=== PATIENT | female | born 1975 | race Caucasian/White ===

== ENCOUNTER → 2018-05-26 13:42 | Outpatient (CLI) | payer OTHER, SELFPAY ==
[2018-05-26 15:20] LABS: Absolute Lymphocyte Count 2.29 X10^3/ul (0.83-4.51); Absolute Neutrophil Count 6.2 X10^3/uL (2.0-7.7); Basophil# 0.02 X10^3/uL; Basophil% 0.2 % (0-1); Eosinophils% 2.2 % (0-5); Hematocrit 38.8 % (37-47); Hemoglobin 12.3 g/dl (12.0-15.0); Lymphocyte # 2.29 X10^3/ul (4.0); Lymphocyte % 25.2 % (19-41); Mean Corp Hgb Conc 31.7 g/gl (32-36); Mean Corpuscular Hgb 26.7 pg (27.0-32.0); Mean Corpuscular Volume 84.3 fL (81-99); Mean Platelet Vol. 9.8 fl (6.2-12.0); Monocyte# 0.37 X10^3/uL; Monocyte% 4.1 % (0-10); Neutrophil # 6.18 X10^3/uL (2.7-7.7); Neutrophil % 68.2 % (47-70); Platelet Count 408 K/mm3 (150-450); RBC Distribution Width CV 13.7 % (11.6-14.6); RBC Distribution Width SD 42.2 fl (35.1-43.9); White Blood Count 9.1 K/mm3 (4.4-11.0)
[2018-05-26 15:31] LABS: POSITIVE COUNT NO; POSITIVE DIFFERENTIAL NO; POSITIVE MORPHOLOGY NO
[2018-05-26 17:33] LABS: ALB/GLOB Ratio 0.7 RATIO (0.9-2.4); AST(SGOT) 12 U/L (15-37); Alanine Aminotransfer ALT/SGPT 20 U/L (13-56); Albumin, Serum 3.3 g/dL (3.2-5.0); Alkaline Phosphatase 63 U/L (45-117); Anion Gap 11 (5-15); BUN 8 mg/dL (7-18); BUN/Creat Ratio 11.3 RATIO (10-20); Calcium,Total 8.5 mg/dL (8.5-10.1); Chloride 105 mmol/L (98-107); Cholesterol 180 mg/dL (200); Creatinine, Serum 0.71 mg/dL (0.55-1.02); EST Glomerular Filtration Rate 95 mL/min (>60); Est Glom Filt Rate - Afr Amer 115 mL/min (>60); Globulin 4.9 g/dL (2.2-4.2); Glucose 81 mg/dL (74-106); High Density Lipoprotein 44 mg/dL; Potassium 3.9 mmol/L (3.5-5.1); Protein, Total 8.2 g/dL (6.4-8.2); Sodium Level 139 mmol/L (136-145); Triglycerides 73 mg/dL; Very Low Density Lipoprotein 15 mg/dL (5-40)
[2018-05-26 17:46] LABS: Vitamin D,25 Hydroxy 28.2 ng/mL (29.95-100.01)
[2018-05-29 09:40] LABS: HPV Reflexed? NOT INDICATED
== END ==
PROVIDERS: Family Provider Family Medicine; PCP Family Medicine; Visit Provider Family Medicine
DX: Z12.4 Encounter for screening for malignant neoplasm of cervix (principal)
CPT/HCPCS: 36415; 80053; 80061; 82306; 85025; 88175; G0145

== ENCOUNTER → 2020-02-15 11:46 | Outpatient (CLI) | payer OTHER, SELFPAY ==
[2020-02-15 15:05] LABS: Absolute Lymphocyte Count 2.25 X10^3/uL (0.83-4.51); Absolute Neutrophil Count 4.4 X10^3/uL (2.0-7.7); Basophil# 0.03 X10^3/uL; Basophil% 0.4 % (0-1); Eosinophil# 0.19 X10^3/uL; Eosinophils% 2.7 % (0-5); Hematocrit 38.6 % (37-47); Hemoglobin 12.2 g/dL (12.0-15.0); Lymphocyte # 2.25 X10^3/ul (4.0); Lymphocyte % 31.4 % (19-41); Mean Corp Hgb Conc 31.6 g/dL (32-36); Mean Corpuscular Hgb 26.5 pg (27.0-32.0); Mean Corpuscular Volume 83.7 fL (81-99); Mean Platelet Vol. 9.9 fl (6.2-12.0); Monocyte# 0.32 X10^3/uL; Monocyte% 4.5 % (0-10); NRBC Flagged by Analyzer 0 % (0-5); Neutrophil # 4.35 X10^3/uL (2.7-7.7); Neutrophil % 60.7 % (47-70); Platelet Count 466 K/mm3 (150-450); RBC Distribution Width CV 13.6 % (11.6-14.6); RBC Distribution Width SD 41.4 fl (35.1-43.9); Red Blood Count 4.61 M/mm3 (4.2-5.4); White Blood Count 7.2 K/mm3 (4.4-11.0)
[2020-02-15 15:21] LABS: Hemoglobin A1c 5.6 % (3.8-5.6)
[2020-02-15 15:37] LABS: ALB/GLOB Ratio 0.7 RATIO (0.9-2.4); AST(SGOT) 14 U/L (15-37); Alanine Aminotransfer ALT/SGPT 22 U/L (13-56); Albumin, Serum 3.4 g/dL (3.2-5.0); Alkaline Phosphatase 63 U/L (45-117); Anion Gap 7 (5-15); BUN 9 mg/dL (7-18); BUN/Creat Ratio 12.9 RATIO (10-20); Calcium,Total 8.8 mg/dL (8.5-10.1); Chloride 107 mmol/L (98-107); Cholesterol 203 mg/dL (200); EST Glomerular Filtration Rate 96 mL/min (>60); Est Glom Filt Rate - Afr Amer 116 mL/min (>60); Estradiol 166.5 pg/mL; Ferritin 8 ng/mL (8-252); Follicle Stimulating Hormone 3.4 mIU/mL; Glucose 82 mg/dL (74-106); High Density Lipoprotein 52 mg/dL; Potassium 3.7 mmol/L (3.5-5.1); Protein, Total 8.4 g/dL (6.4-8.2); Sodium Level 138 mmol/L (136-145); Thyroid Stim Hormone (TSH) 2.66 uIU/mL (0.358-3.74); Triglycerides 63 mg/dL; Very Low Density Lipoprotein 13 mg/dL (5-40)
[2020-02-16 09:12] LABS: Progesterone Level 0.25 ng/mL (See Comment)
== END ==
PROVIDERS: PCP Family Medicine; Visit Provider Family Medicine
DX: E88.81 Metabolic syndrome and other insulin resistance (principal); N92.0 Excessive and frequent menstruation with regular cycle; L64.9 Androgenic alopecia, unspecified; E66.9 Obesity, unspecified
CPT/HCPCS: 36415; 80053; 80061; 82670; 82728; 83001; 83036; 84144; 84403; 84443; 85025

== ENCOUNTER 2020-08-11 15:03 | Outpatient (RCR) | payer OTHER, SELFPAY | END 2020-10-17 23:59 | LOC: IMMUN 15:03 | PROVIDERS: PCP Family Medicine; Visit Provider Family Medicine | DX: Z23 Encounter for immunization (principal) | CPT/HCPCS: 0001A; 0002A; 91300 ==

== ENCOUNTER → 2021-01-17 | Outpatient (CLI) | payer OTHER, SELFPAY ==
--- NOTE | 2021-01-17 | EMB_PTH ---
PATIENT: KATHY BONNER LOC: [facility] U#:[id number] AGE/SX: 45/F ROOM: RE01/17/[address]: Dr. Quirino Art MD : 1975 BED: DIS: 01/17/2021 SPEC #: [id number] RECD: 01/18/21 08:51 STATUS: GI REQ #: [id number] JOSUE: 01/17/21 00:[address]: Quirino Art DEPT: SURGICAL PATHOLOGY RECD BY: Sebastian Brizuela ENTERED: 01/18/21 08:51 SP TYPE: ENDOM BX/C PJ DR: Dr. Ernestine Arias MD Tissues: Endometrium, NOS Procedures: Surgery Specimen Level IV HEADER OPERATION: EMBX PRE-OP DIAGNOSIS: N92.0 TISSUE SUBMITTED: EMBX MICROSCOPIC DIAGNOSIS Endometrium, biopsy: Secretory endometrium. AM:am 06/21/20 MICROSCOPIC DESCRIPTION Slides are reviewed. GROSS DESCRIPTION Received in formalin is one container labeled with the patient name and designated EMBX. The specimen consists of multiple elongated and irregular fragments of pink-khan tissue measuring in aggregate 2.2 x 1.0 x 0.2cm. The specimen is totally submitted in one cassette. /AM:am 01/18/21 TC:5 CPT:97181
[2021-01-26 20:22] LABS: HPV Reflexed? NOT INDICATED
== END | disposition home or self-care (01) ==
LOC: LABSPEC 16:45
PROVIDERS: PCP Family Medicine; Visit Provider Obstetrics & Gynecology
DX: Z12.4 Encounter for screening for malignant neoplasm of cervix (principal); N92.0 Excessive and frequent menstruation with regular cycle
CPT/HCPCS: 88175; 88305; G0145

== ENCOUNTER → 2021-03-07 07:14 | Outpatient (CLI) | payer OTHER, SELFPAY ==
--- NOTE | 2021-03-07 07:17 | BI_ITS ---
MAMMOGRAPHY - BILATERAL SCREENING REASON FOR EXAM: Female, 46 years old. Routine annual screening examination. PERTINENT HISTORY: Non-contributory. TECHNIQUE: Digital bilateral breast vish (3D mammographic acquisition) in the CC and MLO projections. 2-D mediolateral oblique (MLO) and craniocaudad (CC) views of both breasts were obtained. CAD: Full Field Digital Mammography with Computer Added Detection was performed. COMPARISON: None. Baseline examination. FINDINGS: Breast Composition: There are scattered areas of fibroglandular density. There are no dominant masses or suspicious calcifications. Small bilateral axillary lymph nodes. No other significant abnormalities are identified. BI/SCRN MAMM (CAD)W/VISH BILAT IMPRESSION: Negative screening mammogram. Yearly followup mammogram recommended. (A) ASSESSMENT CATEGORY: BIRADS Category 2: Benign. A letter regarding these results will be sent to the patient by the facility within 30 days. Approximately 10% of breast cancers are not detected by mammography. A normal mammogram should not delay biopsy of a clinically suspicious abnormality. [id number] Electronically Signed: Ricardo Martinez MD at 12:15 EDT , Service support ,
== END ==
PROVIDERS: PCP Family Medicine; Referring Provider Obstetrics & Gynecology; Visit Provider Obstetrics & Gynecology
DX: Z12.31 Encounter for screening mammogram for malignant neoplasm of breast (principal)
CPT/HCPCS: 77063; 77067

== ENCOUNTER 2021-04-02 12:53 | Day surgery (SDC) | payer OTHER, SELFPAY ==
[2021-03-29 14:14] LABS: Hematocrit 39.2 % (37-47); Mean Corp Hgb Conc 33.2 g/dL (32-36); Mean Corpuscular Hgb 27.8 pg (27.0-32.0); Mean Corpuscular Volume 83.8 fL (81-99); Mean Platelet Vol. 9.4 fl (6.2-12.0); Platelet Count 485 K/mm3 (150-450); RBC Distribution Width CV 13.2 % (11.6-14.6); RBC Distribution Width SD 40.2 fl (35.1-43.9); Red Blood Count 4.68 M/mm3 (4.2-5.4); White Blood Count 9.5 K/mm3 (4.4-11.0)
[2021-03-29 14:25] LABS: Prothrombin Time (Protime)PT. 12.5 SECONDS (11.7-14.9)
[2021-03-29 14:26] LABS: Partial Thromboplast Time 25.1 Seconds (24.1-36.2)
[2021-03-29 14:28] LABS: Internal QC Validated? YES +Cl - CLEAR BKGD; Pregnancy, Serum, hCG Quali. NEGATIVE Negative
--- NOTE | 2021-04-01 14:18 | PCM.HP.BLA ---
History and Physical Date of Admission: 04/02/21 Surgical History and Physical Erika Landaverde, a 46 year old female 2 0 0 0 2, presents for H/S, D and C, HTA on April 02, 2021 at 3:15. -- Heavy Menses and Dysmenorrhea -- Heavy Bleeding and Clots w/Menses, which began 8 years ago. Erika claims it started gradually and has been present, worsened in last 2 years. It occurs with menses. It is located in the vagina. It is located in the lower abdomen. Erika characterizes it to be to the back. Erika characterizes it to be down both legs. Erika characterizes the quality cramping. Erika characterizes the quality heavy.; Erika characterizes the quality pressure.; Erika characterizes the quality Bleeding. Erika characterizes the quality Clots. Severity is moderate and not improving. It is relieved by Has tried control pills for this problem but it does not help. MEDICATIONS HISTORY: ALLERGIES: No Known Allergies Infections - Chicken pox Illnesses - Facial Hair Accidents - None Hospitalizations - see surgery Review of Systems: GENERAL - Denies fever, or chills SKIN - Denies skin changes EYES - Denies visual changes EARS - Denies difficulty hearing NOSE - Denies nasal congestion or bleeding MOUTH - Denies sore throat or difficulty swallowing NECK - Denies pain or swelling RESPIRATORY - Denies shortness of breath or wheezing CARDIOVASCULAR - Denies palpitations or chest pain GASTROINTESTINAL - Denies nausea, vomiting, diarrhea, constipation GENITOURINARY - Denies dysuria, frequency of urination, incontinence of urine MUSCULOSKELETAL - Denies joint or muscle pain NEUROLOGICAL - Denies localized numbness or weakness PSYCHIATRIC - Denies depression or anxiety ENDOCRINE - Denies heat or cold intolerance, weight loss or gain HEMATO-IMMUNOLOGIC - Denies excesive bleeding with cuts SOCIAL HISTORY: Alcohol Use - occasionally Smoking - Never Diet - no special diet Lifestyle - moderate stress lifestyle and Exercise - regular Seat Belt Use - always Employer - [employer] 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 Roberson PHYSICAL EXAM BP- 138/84 Sitting, Right arm, large cuff Weight- 210 lbs Height- 61 inch BMI:39.76 CONSTITUTIONAL - NAD, well nourished, and well developed SKIN - No rash, lesions, or ulcers HEENT - Normocephalic, PERRLA, EOMI NECK - No nodes, no nuchal rigidity and thyroid normal size and texture LYMPH NODES - Palpation of lymph nodes in neck and groins within normal limits LUNGS - CTA x2 without wheezes, crackles or rales CARDIAC - Regular rate and rhythm without rubs, murmurs, or gallops BREAST - No dominant masses, no tenderness, no axillary adenopathy, no nipple discharge, no skin changes ABDOMEN - Without hepatosplenomegaly, distention, masses, rebound, or guarding; normal bowel sounds; no hernias EXTREMITIES - No edema or calf tenderness NEUROLOGICAL - Cranial nerves II-XII grossly intact PSYCHIATRIC - A and O to time, place, person, mood and affect External Genitial Vagina - non-tender without lesions Urethra/Urethral Meatus - non-tender Bladder - non-tender Vagina - vaginal summers are pink and moist without loss of rugae and no evidence of atropy Cervix - without cervical motion tenderness and has normal size and features without evident lesions Uterus - enlarged uterus 8 wks, wt 125-150 g Adnexa - clear without massess or tenderness ASSESSMENT/PLAN: 1. Dysmenorrhea and Premenopausal Menorrhagia Extremely severe and symptomatic. Pelvic ultrasound today shows a polyp but no fibroids. Recent endometrial biopsy was benign. Patient desires we proceed with endometrial ablation and D and C. Discussed this procedure at length including risk, benefits, and alternatives and all questions were answered.
[2021-04-02] VITALS (7 sets, daily range): BP systolic 101–138; BP diastolic 66–87; PULSE 74–102; RESP 16; TEMP 36.3–36.9; O2SAT 93–98; BMI 38.2
[2021-04-02] MEDS: Lactated Ringers 1,000 ML 15 ML IV (13:20)
[2021-04-02 13:54] LABS: Internal QC Validated? YES +Cl - CLEAR BKGD; Pregnancy, Urine Negative Negative
--- NOTE | 2021-04-02 14:23 | PCM.OPRPT ---
Report of Operation Date of Procedure: 04/02/21 Pre-Operative Diagnosis: Menorrhagia Post-Operative Diagnosis: Menorrhagia Surgery/Procedure Performed:: Diagnostic Hysteroscopy, Dilation Curettage, Hydrothermal Ablation Description of Surgical Findings:: 8 cm endometrial cavity with several 1 cm endometrial polyps present. Cervix with descensus with tenaculum pull to within 1 cm of the introitus. Surgeon: Quirino Art Type of Anesthesia: General (LMA) Anesthesiologist: Alisson Duron Specimen's removed: Endometrial curettings Estimated Blood Loss (mL): Minimal Fluids Replaced: Crystalloid Description of Procedure: Surgeon: Quirino Atr MD, FACOG Indication: This is a 46 year old patient who has been having problems with extremely heavy menses. Conservative measures have not been helpful. Endometrial sampling was benign and pelvic ultrasound showed that ablation may be helpful. Pt has been counseled regarding the risks, benefits and alternatives of this procedure and all questions answered. She understands that only about half of patients will have amenorrhea after this procedure. Procedure: Patient taken to the operating room where after induction of general anesthesia the patient was prepped and draped in the usual sterile fashion. Bladder was drained of urine with a catheter. Anterior cervix grasped and cervix was dilated to about 17 Estonian size. Hysteroscopic hydrothermal ablation (HTA) unit was place in the cervix and the above findings were noted. HTA unit was removed and the uterus was gently curretted removing all contents. An HTA ablation cycle was then carried out at about 90 degrees Centigrade for 10 minutes with virtually no fluid loss during the procedure. It appeared that the hydrothermal ablation unit had clogged at the beginning of this portion of the procedure so after examining the uterine cavity and noting no blanching a new HTA unit was installed and a 10-minute cycle was carried out 90 ?C again with virtually no loss during the procedure. After an appropriate cool down the HTA unit was removed with minimal bleeding noted. The patient tolerated the procedure well and was taken to the recovery room in satisfactory condition. Sponge, instruments and needle counts were all correct. There were no apparent complications of the surgery. Cefotan 2 gms IV was given prior to the procedure. Grafts/Implants Used: None Complications None Admit VTE Documentation VTE Present on Admission: Yes VTE Mechan Device Prophylaxis: SCD's
--- NOTE | 2021-04-02 14:27 | PCM.DC ---
Discharge Instructions Diet Discharge Diet: No restrictions Activity Discharge Activity: Return to Normal Activity, May Shower and May Take a Tub Bath May resume sexual activity in: 3 weeks Additional Activity Instructions:: Nothing in the vagina for 3-4 weeks please. Use Ibuprophen 800 mg orally every 8 hours as needed for pain. Can also add Tylenol 1000 mg every 8 hours if needed for pain. If Ibuprophen and Tylenol are not effective then use the Oxycodone but keep in mind it can cause serious constipation issues. Drink lots of water. Call if bleeding more than a pad per hour. Clear to brownish discharge will last for about 3 weeks. Dressing / Incision Call your doctor if you observe: Fever of 101 or Higher, Inability to urinate, Inability to have a bowel movement and Using more than 1 pad per hour Follow Up Care Please Follow Up With: Quirino Art MD When: 3 to 4 weeks Test Results: Test results from this visit will be discussed in further detail at your follow-up appointment, if applicable. Discharge Plan Admission Primary Reason for Your Visit: Hysteroscopy, Dilation Curettage, Endometrial Ablation Attending Provider: Quirino Art Primary Care Provider: Ernestine Arias Discharge Orders/Prescriptions Prescriptions: New oxycodone 5 mg capsule 5 mg PO Q6H PRN (Reason: pain) 7 Days Qty: 5 RF: 0 No Action multivitamin Tablet 1 tab PO DAILY RF: 0 Referrals / Follow Up: Ernestine Arias MD [Primary Care Provider] - Disposition Disposition (needs filled in before D/C Order can be placed): Home, Self Care
[2021-04-02] MEDS: Cefotetan 2 GM in 0.9% NS 100 ML IV (14:28)
[2021-04-02] MEDS: Oxytocin 10 UNITS/ML Vial (14:48)
[2021-04-02] MEDS: oxyCODONE 5 MG Tablet PO (17:00)
--- NOTE | 2021-04-03 | EMB_PTH ---
PATIENT: KATHY BONNER [place] [facility] [place][id number] AGE/SX: 46/F ROOM: RE04/02/[address]: Dr. Quirino Art MD : 1975 BED: DIS: 04/02/2021 SPEC #: [id number] RECD: 04/03/21 11:46 STATUS: GI REMala #: [id number] JOSUE: 04/03/21 00:[address]: Quirino Art DEPT: SURGICAL PATHOLOGY RECD BY: Sebastian Brizuela ENTERED: 04/03/21 11:46 SP TYPE: ENDOM BX/C PJ DR: Dr. Ernestine Arias MD Tissues: Endometrium, NOS Procedures: Surgery Specimen Level IV HEADER OPERATION: Hysteroscopy, D & C, hydroablation PRE-OP DIAGNOSIS: Menorrhagia TISSUE SUBMITTED: Endometrial curettings MICROSCOPIC DIAGNOSIS Endometrial curetttings: Secretory endometrium. Fragments of benign endometrial polyp. SJ04/04/21 MICROSCOPIC DESCRIPTION Slides are reviewed. GROSS DESCRIPTION Received in fixative is one container labeled with the patient's name and designated endometrial curettings. The specimen consists of multiple fragments of hemorrhagic soft tissue that in aggregate measure 5 x 3 x 0.6 cm. A few polypoid pieces of khan soft tissue are also noted. One of the polypoid pieces of tissue is bisected. The entire specimen is submitted in four cassettes. SJ:ramu 04/03/2021 TC:5 CPT: [id number]
== END 2021-04-02 17:45 | disposition home or self-care (01) ==
LOC: SDC 12:54 → AC 12:54
PROVIDERS: Anesthesiology; PCP Family Medicine; Referring Provider Obstetrics & Gynecology; Visit Provider Obstetrics & Gynecology
PROC: 0U5B8ZZ Destruction of Endometrium, Via Natural or Artificial Opening Endoscopic (ICD-10-PCS; CPT 58563; principal; 2021-04-02 15:00)
DX: N94.6 Dysmenorrhea, unspecified (principal); N92.4 Excessive bleeding in the premenopausal period
CPT/HCPCS: 00952; 58563; 36415; 81025; 84703; 85027; 85610; 85730; 86850; 86900; 86901; 88305; J7120; J2405

== ENCOUNTER → 2022-04-17 | Outpatient (CLI) | payer OTHER, SELFPAY ==
[2022-04-17 10:36] LABS: Cholesterol 203 mg/dL (200); High Density Lipoprotein 51 mg/dL; Triglycerides 66 mg/dL; Very Low Density Lipoprotein 13 mg/dL (5-40)
[2022-04-17 10:56] LABS: Hemoglobin A1c 5.7 % (3.8-5.6)
== END | disposition home or self-care (01) ==
LOC: WOBLAB 09:03
PROVIDERS: PCP Family Medicine; Visit Provider Obstetrics & Gynecology
DX: Z13.220 Encounter for screening for lipoid disorders (principal)
CPT/HCPCS: 36415; 80061; 83036

== ENCOUNTER → 2022-04-24 | Outpatient (CLI) | payer OTHER, SELFPAY ==
--- NOTE | 2022-04-24 07:42 | BI_ITS ---
MAMMOGRAPHY - BILATERAL SCREENING REASON FOR EXAM: Female, 47 years old. Routine annual screening examination. PERTINENT HISTORY: Non-contributory. TECHNIQUE: Digital bilateral breast vish (3D mammographic acquisition) in the CC and MLO projections. 2-D mediolateral oblique (MLO) and craniocaudad (CC) views of both breasts were obtained. CAD: Full Field Digital Mammography with Computer Added Detection was performed. COMPARISON: Comparison is made with prior examination dated 03/07/2021. FINDINGS: Breast Composition: There are scattered areas of fibroglandular density. There are no dominant masses or suspicious calcifications. Stable 1.2 cm well-defined nodule in the upper lateral aspect of the right breast where a central fatty notch in keeping with a small lymph node. Stable benign-appearing bilateral axillary lymph nodes. No other significant abnormalities are identified. There has been no significant change since the prior study. BI/SCRN MAMM (CAD)W/VISH BILAT IMPRESSION: Stable bilateral screening mammogram. Yearly follow-up mammogram recommended. (A) ASSESSMENT CATEGORY: BIRADS Category 2: Benign. A letter regarding these results will be sent to the patient by the facility within 30 days. Approximately 10% of breast cancers are not detected by mammography. A normal mammogram should not delay biopsy of a clinically suspicious abnormality. [id number] Electronically Signed: Ricardo Martinez MD at 9:28 EST ,
== END | disposition home or self-care (01) ==
LOC: OPBI 07:39
PROVIDERS: PCP Family Medicine; Referring Provider Obstetrics & Gynecology; Visit Provider Obstetrics & Gynecology
DX: Z12.31 Encounter for screening mammogram for malignant neoplasm of breast (principal)
CPT/HCPCS: 77063; 77067